=== PATIENT | female | born 1960 | race Caucasian/White ===

== ENCOUNTER 2022-04-20 08:48 | Emergency (ER) | payer BC, SELFPAY ==
--- NOTE | ~2022-04-20 | XR_ITS ---
EXAMINATION: XR KNEE, LEFT CLINICAL INFORMATION: Left knee pain status post injury. COMPARISON: None TECHNIQUE: Four views of the left knee. FINDINGS: Minimal tricompartmental joint space narrowing is seen. There is a small suprapatellar joint effusion. No acute fractures seen. The soft tissues are unremarkable. XR/XR knee LT 4V IMPRESSION: Small suprapatellar joint effusion and probable minimal tricompartmental degenerative narrowing. No overt fracture.
--- NOTE | ~2022-04-20 | XR_ITS ---
EXAMINATION: XR KNEE, RIGHT CLINICAL INFORMATION: Right knee pain status post injury. COMPARISON: None TECHNIQUE: Four views of the right knee. FINDINGS: Minimal tricompartmental joint space narrowing is seen. There is no acute fracture or dislocation. There is a small to moderate patellar joint effusion. The soft tissues are unremarkable. XR/XR knee RT 4V IMPRESSION: Small to moderate suprapatellar joint effusion with minimal tricompartmental degenerative narrowing. No overt fracture.
[2022-04-20 09:00] VITALS: BP 114/55; PULSE 95; RESP 18; TEMP 37.1; O2SAT 98; BMI 23.7
--- NOTE | 2022-04-20 11:38 | ED_ITS ---
HPI - Extremity Injury (Lower) General Chief Complaint: Extremity Injury, Lower Stated Complaint: Fall/L&R knee pain Time Seen by Provider: 04/20/22 11:24 Source: patient History of Present Illness HPI Narrative: 62-year-old female with no significant medical history presents following a fall on bilateral knees that occurred last night. Patient reports that she was in her basement when she tripped and fell, landing on both knees. She endorses bilateral knee swelling and pain. She has been elevating her legs and applying ice with slight improvement. She states she took 1 Motrin last night and 2 this morning at 06:00 with little relief. Since her fall, she has been ambulating with a walker that she received from a relative. She denies head trauma, LOC, numbness, tingling, paresthesias, or any sick symptoms. MD complaint: knee injury Onset (ago): day(s) Related Data Allergies Allergy/AdvReac Type Severity Reaction Status Date / Time equine protein Allergy Severe SWELLING, Verified 04/20/22 08:58 [Equine Protein] DIFFICULTY BREATHING - TO HORSE SERUM Review of Systems 2 Review of Systems: Constitutional: No Weight Loss, No Fever, No Chills ENT/Mouth: No Nasal Congestion, No Hoarseness, No Sore Throat, No Rhinorrhea Cardiovascular: No Chest Pain, No SOB Respiratory: No Cough, No Sputum, No Wheezing Gastrointestinal: No Nausea, No Vomiting, No Diarrhea, No Constipation, No Abdominal pain Genitourinary: No Dysuria, No Urinary Frequency, No Urinary Incontinence/retention, No Urgency Musculoskeletal: + joint pain, No Myalgias, + Joint Swelling Skin: No Skin Lesions, No rash Neuro: No Weakness, No Numbness, No Paresthesias Yes all other systems are reviewed and are negative Constitutional: Constitutional: Reports as per HPI [facility] Past Medical History Attestation statement: The following information was validated with the patient. Social History Social History Advance Directives: Yes Advance Directives Information Provided: Yes Advance Directives on File: No Physical Exam Vital Signs: Vital Signs: Last Vital Signs Temp 98.8 F 04/20/22 09:00 Pulse 95 04/20/22 09:00 Resp 18 04/20/22 09:00 BP 114/55 L 04/20/22 09:00 Pulse Ox 98 04/20/22 09:00 O2 Del Method 04/20/22 09:00 BMI result Body Mass Index 23.7 Const: General: cooperative, healthy appearing and no acute distress Orientation/consciousness: patient oriented x3 Limitations: no limitations HEENT: Head: Yes normal to inspection and Yes atraumatic Ears: hearing grossly normal bilaterally General nose exam: Normal external nose present Face and sinus: Yes normal facial exam Eyes: General: appearance normal, both eyes and all related structures EOM: EOMs intact bilaterally Neck: Neck: Yes normal visual inspection and Yes no meningeal signs Resp: Effort & Inspection: normal respiratory effort and no respiratory distress Auscultation: clear to auscultation bilaterally Cardio: Rate: regular rate Heart sounds: S1 normal heart sound present and S2 normal heart sound present Skin: Rashes: no rashes Wounds: no wounds Neuro: General: patient oriented x3, tone normal and no meningeal signs Gait exam (Neuro): Normal gait present Extrem: Other: No deformity. Swelling to bilateral knees. +small abrasion/ecchymosis to R knee. Slight decrease to ROM > right 2/2 pain. NV intact distally Course Course Course Narrative: 11:58: XR/XR knee LT 4V IMPRESSION: Small suprapatellar joint effusion and probable minimal tricompartmental degenerative narrowing. No overt fracture. 11:58: XR/XR knee RT 4V IMPRESSION: Small to moderate suprapatellar joint effusion with minimal tricompartmental degenerative narrowing. No overt fracture. Results discussed with patient. Ice, elevate, and take Tylenol or Motrin as needed for pain management, Bear weight as tolerated & Follow up with orthopedics MDM - Extremity Injury (Lower) MDM Narrative Medical decision making narrative: 62-year-old female with no significant medical history presents following a fall on bilateral knees that occurred last night. On exam vital signs stable, phys ical exam as above. Concern for fracture versus dislocation versus strain or sprain Plan: -XR's Medical Records Attestation: I reviewed the patient's medical records. Lab Data Attestation: I reviewed the patient's lab results. Discharge Plan Discharge Clinical Impression: Knee sprain, bilateral Patient Disposition: Home, Self-Care Instructions: Knee Sprain (ED), How to Use an Elastic Bandage (ED) Additional Instructions: Your x-ray show a joint effusion and some degenerative changes, no fractures. Wear Juno wrap at home for comfort and stability Ice. Elevate. Take Tylenol and Motrin around the clock. Bear weight as tolerated. Please follow-up with orthopedics as needed rest Referrals: Trev Miranda MD [Physician] - 1 week Danny Morales MD [Primary Care Provider] - Interventions: ED Discharge Assessment Last Done: 04/20/22 12:01 Discharge Date/Time: 04/20/22 12:01
== END 2022-04-20 12:01 | disposition home or self-care (01) ==
PROVIDERS: Emergency Provider Emergency Medicine Emergency Medical Services; PCP Family Medicine
DX: S83.92XA Sprain of unspecified site of left knee, initial encounter (principal); S83.91XA Sprain of unspecified site of right knee, initial encounter; W01.0XXA Fall on same level from slipping, tripping and stumbling without subsequent striking against object, initial encounter; Y93.89 Activity, other specified; Y92.018 Other place in single-family (private) house as the place of occurrence of the external cause; Y99.9 Unspecified external cause status
CPT/HCPCS: 73564; 99283